=== PATIENT | female | born 1945 | race Hispanic/Latino ===

== ENCOUNTER 2025-05-05 06:02 | Emergency (ER) | payer MEDICARE ==
[~2025-05-05] VITALS: Ht 160 cm; Wt 72.6 kg
[~2025-05-05 06:02] MED LIST: AMBIEN10 MG PO; BUSPIRONE HCL10 MG PO; DEPAKOTE ER500 MG PO
[2025-05-05 06:09] VITALS: PULSE 77; RESP 18; TEMP 97.5; O2SAT 97
[2025-05-05] MEDS ORDERED: BENZONATATE200 MG PO (06:59)
== END 2025-05-05 07:07 | disposition home or self-care (01) ==
LOC: FSED 06:36
DX: R05.9 Cough, unspecified (principal); J06.9 Acute upper respiratory infection, unspecified; I10 Essential (primary) hypertension; F32.A Depression, unspecified; F41.9 Anxiety disorder, unspecified; Z11.52 Encounter for screening for COVID-19; Z85.3 Personal history of malignant neoplasm of breast
CPT/HCPCS: 0223U; 71046; 85025; 99284